=== PATIENT | male | born 1985 | race Caucasian/White ===

== ENCOUNTER 2024-01-22 08:52 | Outpatient (CLI) | payer MEDICAID | END 2024-01-22 23:59 | disposition home or self-care (01) | LOC: MRI 08:52 | PROVIDERS: ATTEND Physician Assistant | DX: M51.17 Intervertebral disc disorders with radiculopathy, lumbosacral region (principal); M47.27 Other spondylosis with radiculopathy, lumbosacral region | CPT/HCPCS: 72148 ==